=== PATIENT | female | born 1985 | race Caucasian/White ===

== ENCOUNTER 2016-05-25 04:27 | Emergency (ER) | payer OTHER ==
[~2016-05-25] VITALS: Ht 162.6 cm; Wt 100.6 kg
[~2016-05-25 04:27] MED LIST: CODE-54 PO; IBUP-793 PO; PNV1TABL9 PO; SULF-228 PO
--- OUTSIDE RECORDS SUMMARY | 2016-05-25 04:31 | XMS REPORT | Continuity of Care Document ---
Author Author [facility] Organization [facility] Address Unknown Phone Unavailable Care Team Providers Care Welder Assembler Name Role Phone Moises, Colby Oneill MD PP [phone] Insurance Providers Payer Name Policy Number Subscriber Name Relationship [facility] [id number] Ortiz Ledesma8 Fiance Advance Directives Directive Response Recorded Date Advanced Directives Not applicable 11:11pm Problems Medical Problem Onset Date Abscess 12/21/12 Delivery normal 06/12/12 Allergies, Adverse Reactions, Alerts Allergen Type Severity Reaction Last Updated No Known Allergies Allergy 06/12/12 Medications Medication Dose Units Route Sig Qty Days Acetaminophen/Codeine (Tylenol W/Codeine #3 Tab) 1 Tab PO Q6H 20 Trimethoprim/Sulfamethoxazole (Bactrim Ds) 1 Ea PO BID 14 Ibuprofen (Motrin) 600 Mg PO Q6H PRN Pnv Cmb#21/Iron/Folic Acid ( Complete Caplet) 1 Each PO DAILY Response Recorded Date/Time Status not known Unknown Results Test Date Result Interp. Ref. Range Basophils # (Auto) June 13, 2012 6:05am 0.0 10^3/uL N 0.0-0.2 Basophils (%) (Auto) June 13, 2012 6:05am 0 % N 0-1 Eosinophils # (Auto) June 13, 2012 6:05am 0.2 10^3/uL N 0.0-0.5 Eosinophils (%) (Auto) June 13, 2012 6:05am 2 % N 0-5 Hematocrit June 13, 2012 6:05am 36.80 % N 35.00-45.00 Hemoglobin June 13, 2012 6:05am 12.0 g/ dL N 12.0-15.5 Lymphocytes # (Auto) June 13, 2012 6:05am 5.1 X 10^3 H 0.6-3.6 Lymphocytes (%) (Auto) June 13, 2012 6:05am 34 % N 16-34 Mean Corpuscular Hemoglobin June 13, 2012 6:05am 29.2 PG N 26.0-34.0 Mean Corpuscular Hemoglobin Concent June 13, 2012 6:05am 32.6 g/dL N 31.0-37.0 Mean Corpuscular Volume June 13, 2012 6:05am 90 FL N 80-100 Mean Platelet Volume June 13, 2012 6:05am 10.6 FL H 6.0-9.5 Monocytes # (Auto) June 13, 2012 6:05am 0.8 X 10^3 N 0.1-1.3 Monocytes (%) (Auto) June 13, 2012 6:05am 5 % N 0-10 Neutrophils # (Auto) June 13, 2012 6:05am 8.8 X 10^3 H 2.1-8.1 Neutrophils (%) (Auto) June 13, 2012 6:05am 59 % N 50-73 Platelet Count June 13, 2012 6:05am 404 10^3/uL N 150-450 Red Blood Count June 13, 2012 6:05am 4.11 10^6/uL N 4.00-5.00 Red Cell Distribution Width June 13, 2012 6:05am 13.5 % N 11.8-15.6 White Blood Count June 13, 2012 6:05am 14.83 10^3/uL H 4.0-11.0 Procedures Procedure Code Date REPAIR OB LACERATION NEC 75.69 06/12/12 Encounters Encounter Location Date/Time Registered Emergency Room [facility] 12/21/12 11:02pm Discharged Inpatient [facility] 06/12/12 12:10am
--- NOTE | 2016-05-25 04:45 | NUR ---
PT REPORTS PAIN AT UMBILICUS WHICH RADIATES ACROSS ABDOMEN.
[2016-05-25] MEDS ORDERED: KETOROLAC 30 MG/ML (TORADOL) 1 ML VIAL IV ONE (04:55)
[2016-05-25] MEDS ORDERED: ONDANSETRON 2 MG/ML (Z0FRAN) 2 ML VIAL IV ONE (04:55)
[2016-05-25] MEDS ORDERED: GI COCKTAIL 55 ML UDC PO ONE (04:55)
[2016-05-25] MEDS ORDERED: BELLADONNA/PHENOBARBITAL ELIXIR (DONNATAL) 10 ML UDC ONE (04:59)
[2016-05-25] MEDS ORDERED: LIDOCAINE 2% VISCOUS 20ML UDC PO ONE (04:59)
[2016-05-25] MEDS ORDERED: MAG HYDROX/AL HYDROX/SIMETH 400-400-40/5 ML (MAG-AL PLUS XS) 30 ML UDC ONE (04:59)
[2016-05-25 05:18] LABS: BASOPHILS % (AUTO) 0 % (0-2); EOSINOPHILS # (AUTO) 0.3 10^3uL; EOSINOPHILS % (AUTO) 2 % (0-4); LYMPHOCYTES # (AUTO) 3.8 X10^3; MEAN CORPUSCULAR HEMOGLOBIN 31.1 PG (26.0-34.0); MEAN CORPUSCULAR VOLUME 92 FL (80-100); MEAN PLATELET VOLUME 10.8 FL (6.0-9.5); MONOCYTES # (AUTO) 0.8 X10^3; MONOCYTES % (AUTO) 5 % (3-11); NEUTROPHILS # (AUTO) 9.4 X10^3; NEUTROPHILS % (AUTO) 66 % (51-67); PLATELET COUNT 399 10^3uL (150-450); WHITE BLOOD COUNT 14.33 10^3uL (4.0-11.0)
[2016-05-25 05:28] LABS: BILIRUBIN,URINE Negative (Negative); CLARITY,URINE Clear; COLOR,URINE Yellow; GLUCOSE, URINE (UA) Negative (Negative); LEUKOCYTE ESTERASE ,URINE Negative (Negative); UROBILINOGEN,URINE 0.2 mg/dL (0.2-1.0)
[2016-05-25 05:31] LABS: ALBUMIN 4.1 g/dL (3.4-5.0); ANION GAP 16.7 MEQ/L (3-15); CALCULATED IONIZED CALCIUM 3.8 mg/dL (3.8-4.6); TOTAL PROTEIN 7.9 g/dL (6.4-8.5)
[2016-05-25 05:38] LABS: URINE CENTRIFUGED VOLUME 12 mL
[2016-05-25 05:39] LABS: HCG,QUALITATIVE URINE Negative (Negative); RBC,URINE 0-2 /HPF
[2016-05-25] MEDS ORDERED: PROMETHAZINE HCL INJ 25 MG in SODIUM CHLORIDE 25 ML IV ONE (05:45)
[2016-05-25] MEDS ORDERED: PROMETHAZINE 25 MG/ML (PHENERGAN) 1 ML VIAL IM ONE (05:45)
[2016-05-25] MEDS ORDERED: ED- ONDANSETRON ODT 4 MG (ZOFRAN) 4 TABLETS/BTL PO ONE (05:50)
--- NOTE | 2016-05-25 06:00 | NUR ---
PT DECLINED PHENNASRA- AWARE.
--- NOTE | 2016-05-25 06:15 | NUR ---
PT REPORTS FEELING BETTER AT TIME OF DC. BRITTNEYFRAN TO GO PACK GIVEN TO PT.
[2016-05-25 06:21] VITALS: BP 149/92
== END 2016-05-25 06:15 | disposition home or self-care (01) ==
LOC: ED 04:30
DX: R10.84 Generalized abdominal pain (principal); A08.4 Viral intestinal infection, unspecified; D72.829 Elevated white blood cell count, unspecified
CPT/HCPCS: 36415; 80053; 81003; 81015; 81025; 83690; 85025; 96361; 96374; 96375; 99283; J1885; J2405; J7030; 99282